=== PATIENT | female | born 1970 | race Caucasian/White ===

== ENCOUNTER 2020-03-27 06:35 | Day surgery (SDC) | payer BC ==
[2020-03-27] MEDS ORDERED: Midazolam 1 MG/ML 2 ML SDV ONE (06:49)
[2020-03-27] MEDS ORDERED: Ondansetron 4 MG/2 ML SDV ONE ×2 (06:49→08:13)
[2020-03-27] MEDS ORDERED: Propofol 200 MG/20 ML SDV ONE ×5 (06:49→09:28)
[2020-03-27] MEDS ORDERED: Lidocaine 1% 4 ML ONE (06:49)
[2020-03-27] MEDS ORDERED: fentaNYL 250 MCG/5 ML SDV ONE (06:49)
[2020-03-27] MEDS ORDERED: Rocuronium 50 MG/5 ML Vial ONE (06:49)
[2020-03-27] MEDS: Lactated Ringers 1,000 ML IV SCH ×2 (06:50→10:08)
[2020-03-27] MEDS ORDERED: ceFAZolin 1 GM Vial ONE (06:57)
[2020-03-27] MEDS ORDERED: Sodium Chloride 0.9% 10 ML Syringe FLUSH PRN (07:00)
[2020-03-27] MEDS ORDERED: Lidocaine 1%/Sod Bicarbonate in NS 8.4% 1 ML Syringe IDERM PRN (07:00)
[2020-03-27] MEDS ORDERED: Scopolamine 1.5 MG Transdermal Patch TOP SCH (07:20)
[2020-03-27] MEDS ORDERED: Sodium Chloride 0.9% 50 ML SDV ONE (07:20)
[2020-03-27] MEDS ORDERED: Bupivacaine 0.5% 30 ML SDV ONE (07:20)
[2020-03-27] MEDS ORDERED: Lidocaine 1% with EPINEPHrine 1:100,000 20 ML MDV ONE (07:20)
--- NOTE | 2020-03-27 07:22 | PCM.PREANE ---
Preanesthetic Assessment - Procedure Proposed Procedure: lap assisted vag hyst with bs - Anesthesia/Transfusion/Family Hx Type of Anesthesia Reaction: Excessive Nausea/Vomiting Family History of Anesthesia Reaction: No Transfusion History: No Prior Transfusion(s) - Review of Systems General: No Symptoms Pulmonary: No Symptoms Cardiovascular: Palpitations (on and off- pvc and said its harmless) Gastrointestinal: No Symptoms Neurological: No Symptoms Other: Reports: Anxiety - Physical Assessment NPO Status Date: 03/26/20 NPO Status Time: 21:00 Vital Signs: Last Vital Signs Temp 98.9 F 03/27/20 06:35 Pulse 84 03/27/20 06:35 Resp 18 03/27/20 06:35 BP 117/64 03/27/20 06:35 Pulse Ox 99 03/27/20 06:35 Height: 5 ft 8 in Weight: 72.575 kg ASA Class: 2 Mental Status: Alert & Oriented x3 Airway Class: Mallampati = 1 Dentition: Reports: Normal Dentition Thyro-Mental Finger Breadths: 3 Mouth Opening Finger Breadths: 3 ROM/Head Extension: Full Lungs: Clear to Auscultation, Normal Respiratory Effort Cardiovascular: Regular Rate, Regular Rhythm - Lab Values: Laboratory Last Values WBC 4.14 K/mm3 (3.98-10.04) 03/27/20 06:48 RBC 4.15 M/mm3 (3.98-5.22) 03/27/20 06:48 Hgb 12.1 gm/dl (11.2-15.7) 03/27/20 06:48 Hct 37.2 % (34.1-44.9) 03/27/20 06:48 MCV 89.6 fl (79.4-94.8) 03/27/20 06:48 MCH 29.2 pg (25.6-32.2) 03/27/20 06:48 MCHC 32.5 g/dl (32.2-35.5) 03/27/20 06:48 RDW Std Deviation 44.2 fL (36.4-46.3) 03/27/20 06:48 Plt Count 185 K/mm3 (182-369) 03/27/20 06:48 MPV 11.8 fl (9.4-12.3) 03/27/20 06:48 Neut % (Auto) 59.0 % (34.0-71.1) 03/27/20 06:48 Lymph % (Auto) 30.9 % (19.3-51.7) 03/27/20 06:48 [place] % (Auto) 7.7 % (4.7-12.5) 03/27/20 06:48 Eos % (Auto) 1.2 (0.7-5.8) 03/27/20 06:48 Baso % (Auto) 1.0 % (0.1-1.2) 03/27/20 06:48 Neut # (Auto) 2.44 K/mm3 (1.56-6.13) 03/27/20 06:48 Lymph # (Auto) 1.28 K/mm3 (1.18-3.74) 03/27/20 06:48 [place] # (Auto) 0.32 K/mm3 (0.24-0.36) 03/27/20 06:48 Eos # (Auto) 0.05 K/mm3 (0.04-0.36) 03/27/20 06:48 Baso # (Auto) 0.04 K/mm3 (0.01-0.08) 03/27/20 06:48 Urine Color Yellow (Yellow) 03/27/20 06:31 Urine Appearance Clear (Clear) 03/27/20 06:31 Urine pH 7.0 (5.0-8.0) 03/27/20 06:31 Ur Specific [place] 1.020 (1.005-1.030) 03/27/20 06:31 Urine Protein Negative (Negative) 03/27/20 06:31 Urine Glucose (UA) Negative (Negative) 03/27/20 06:31 Urine Ketones Negative (Negative) 03/27/20 06:31 Urine Occult Blood Negative (Negative) 03/27/20 06:31 Urine Nitrite Negative (Negative) 03/27/20 06:31 Urine Bilirubin Negative (Negative) 03/27/20 06:31 Urine Urobilinogen 0.2 (0.2-1.0) 03/27/20 06:31 Ur Leukocyte Esterase Negative (Negative) 03/27/20 06:31 Urine HCG, Qual Negative (NEGATIVE) 03/27/20 06:31 - Allergies Allergies/Adverse Reactions: Allergies Allergy/AdvReac Type Severity Reaction Status Date / Time No Known Allergies Allergy Verified 03/26/20 11:44 - Blood Blood Available: Yes - Acknowledgements Anesthesia Type Planned: General Anesthesia Pt an Appropriate Candidate for the Planned Anesthesia: Yes Alternatives and Risks of Anesthesia Discussed w Pt/Guardian: Yes Pt/Guardian Understands and Agrees with Anesthesia Plan: Yes PreAnesthesia Questionnaire Cardiovascular History: Reports: None Respiratory History: Reports: None Gastrointestinal History: Reports: GERD MUSKRAT TRAPPER History: Reports: Fibroids, Other OB/BYN History: ovarian cyst, irregular menses Musculoskeletal History: Reports: Arthritis (right knee) Psychiatric History: Reports: Anxiety Endocrine/Metabolic History: Reports: None Hematologic History: Reports: Anemia Oncologic (Cancer) History: Reports: None Dermatologic History: Reports: Other (See Below) Other Dermatologic History: cold sores - Past Surgical History Cardiovascular Surgical History: Reports: Varicose GI Surgical History: Reports: Hernia, Inguinal Female Surgical History: Reports: Section Musculoskeletal Surgical History: Reports: Arthroscopic Knee - SUBSTANCE USE Tobacco Use Status *Q: Never Tobacco User Tobacco Use Within Last Twelve Months: No Second Hand Smoke Exposure: No Days Per Week of Alcohol Use: 1 (rare) Recreational Drug Use History: No - HOME MEDS Home Medications: Home Meds Calcium Carbonate/Vitamin D3 [Calcium 500+D Tablet Chew] 1 tab PO DAILY 03/26/20 [History] Iron 1 tab PO DAILY 03/26/20 [History] Multivitamin 1 tab PO DAILY 03/26/20 [History] Norethindrone [Aygestin] 1 tab PO DAILY 03/26/20 [History] - CURRENT (IN HOUSE) MEDS Current Meds: Current Medications Lactated Ringer's (Ringers, Lactated) 1,000 mls @ 125 mls/hr IV ASDIRECTED DERRICK Stop: 03/27/20 23:00 Lidocaine/Sodium Bicarbonate (Buffered Lidocaine 1% In Ns 8.4%) 0.25 ml IDERM ONETIME PRN PRN Reason: Prior to IV Start Stop: 03/27/20 18:00 Sodium Chloride (Saline Flush) 10 ml FLUSH ASDIRECTED PRN PRN Reason: Keep Vein Open Stop: 03/27/20 18:00 Discontinued Medications Cefazolin Sodium (Ancef) Confirm Administered Dose 2 gm .ROUTE .STK-MED ONE Stop: 03/27/20 06:58 Fentanyl (Sublimaze) Confirm Administered Dose 250 mcg .ROUTE .STK-MED ONE Stop: 03/27/20 06:50 Lidocaine HCl (Xylocaine-Mpf 1%) Confirm Administered Dose 4 mls @ as directed .ROUTE .STK-MED ONE Stop: 03/27/20 06:50 Midazolam HCl (Versed 1 Mg/Ml) Confirm Administered Dose 2 mg .ROUTE .STK-MED ONE Stop: 03/27/20 06:50 Ondansetron HCl (Zofran) Confirm Administered Dose 4 mg .ROUTE .STK-MED ONE Stop: 03/27/20 06:50 Propofol (Diprivan 20 Ml) Confirm Administered Dose 200 mg .ROUTE .STK-MED ONE Stop: 03/27/20 06:50 Rocuronium [place] (Zemuron) Confirm Administered Dose 50 mg .ROUTE .STK-MED ONE Stop: 03/27/20 06:50
[2020-03-27] MEDS ORDERED: Ketorolac 30 MG/ML SDV ONE (07:58)
[2020-03-27] MEDS ORDERED: Dexamethasone 4 MG/ML 5 ML MDV ONE (07:58)
[2020-03-27] MEDS ORDERED: Lactated Ringers 1,000 ML ONE (08:01)
[2020-03-27] MEDS ORDERED: Ketamine 500 mg/10 ML MDV ONE (08:05)
[2020-03-27] MEDS ORDERED: HYDROmorphone 0.5 MG/0.5 ML Syringe IVPUSH PRN (08:10)
[2020-03-27] MEDS ORDERED: Ondansetron 4 MG/2 ML SDV IVPUSH PRN ×2 (08:10→09:59)
[2020-03-27] MEDS ORDERED: HYDROmorphone 0.5 MG/0.5 ML Syringe ONE (08:33)
--- NOTE | 2020-03-27 09:53 | PCM.POSTAN ---
POST ANESTHESIA ASSESSMENT - MENTAL STATUS Mental Status: Somnolent - VITAL SIGNS Vital Signs: Last Vital Signs Temp 98.9 F 03/27/20 06:35 Pulse 84 03/27/20 06:35 Resp 18 03/27/20 06:35 BP 117/64 03/27/20 06:35 Pulse Ox 99 03/27/20 06:35 0946 78 10 97.5 98 105/68 - RESPIRATORY Respiratory Status: Respiratory Rate WNL, Airway Patent, O2 Saturation Stable, Supplemental Oxygen - CARDIOVASCULAR CV Status: Pulse Rate WNL - GASTROINTESTINAL GI Status: No Symptoms - PAIN Pain Score: 0 (sleeping) - POST OP HYDRATION Hydration Status: Adequate & Stable
[2020-03-27] MEDS ORDERED: oxyCODONE 5 MG Tab PO PRN (09:59)
[2020-03-27] MEDS: fentaNYL 100 MCG/2 ML SDV IVPUSH PRN ×2 (10:04→10:26)
--- NOTE | 2020-03-27 10:06 | PCM.OPNOTE ---
- General Post-Op/Procedure Note Date of Surgery/Procedure: 03/27/20 Operative Procedure(s): Laparoscopic-assisted total vaginal hysterectomy with bilateral salpingectomy Findings: Anterior and posterior cul-de-sacs without any significant scarring. Right and left ovary were functional and normal in size. Left ovarian cyst previously seen on ultrasound and resolved. Fallopian tubes were unremarkable. Uterus was mildly enlarged. Is freely mobile and without other apparent pathology. Ankit endix is flaccid and not inflamed. Liver edge and gallbladder were without any evidence of inflammation. Pre Op Diagnosis: Menorrhagia with irregular cycles Post-Op Diagnosis: Same Anesthesia Technique: General ET Tube Other Anesthesia Type: Lidocaine 1/4% with [id number] cclocal, Marcaine0.5 %local Primary Surgeon: Kane Amezcua Secondary Surgeon: Robert Arellano Anesthesia Provider: Ca Epstein Reason Eyeglass Assembler Was Necessary: Retraction, assistance, patient safety, quality of care Pathology: Uterus/cervix/bilateral fallopian tubes in 1 specimen container Fluid Replacement, Intraop: 1,600 Output, Urine Amount: 250 EBL in mLs: 400 Drain/Tube Comments:: Indwelling bladder catheter during surgery only Condition: Good Free Text/Narrative:: Intake & Output 03/26/20 03/27/20 03/27/20 22:59 06:59 14:59 Output Total 250 Balance -250 Surgery duration: 83 minutes The patient was taken to the operating room placed in supine position on the operating table. She received 2 g of Ancef preoperatively for infection prophylaxis. She had signed consent previously. After adequate anesthesia patient was placed in a dorsal lithotomy position. It should be noted she had sequential compression stockings in place for DVT prophylaxis. Paz catheter was placed. This was done after adequate prepping and draping. The patient was placed in supine position and 3 laparoscopic port sites were developed. Marcaine 0.5% approximately 3-5 mL was injected at each site. Verres needle was placed and pneumoperitoneum was achieved with 3 L of CO2. Infraumbilical and 2 lateral port sites were developed. Under laparoscopic guidance the upper portion of the hysterectomy was performed. The right infundibulopelvic ligament was elevated and crossclamped using the [employer] computerized cautery device. The round ligament was taken down to the broad ligament. At this time attention was turned to the left side and the left infundibulopelvic ligament and the triple ligament were then taken down in a similar fashion. Broad ligament was taken down to the area of the uterine vasculature. Uterine vasculature was developed in the usual fashion using the cautery system. Both uterine arteries were identified and developed. Vaginal approach was then undertaken. The patient was placed in the dorsal lithotomy position and a weighted speculum was placed in the vagina. The cervix was injected with lidocaine quarter percent with epinephrine 20 mL total. A full circumference incision was made through the epithelium around the cervix. Posterior cul-de-sac was entered without problems. The left uterosacral ligament and then the right uterosacral were taken down using the Enseal vessel closure system. The cardinal ligament and what remained of the uterine vascular vessels and cervical branches of the vessels were managed with the Enseal vessel closure system on each side. Anterior cul-de-sac was then entered and the remaining portion of broad ligament on the right side and a small portion of broad ligam ent remaining on the left side were then developed in the usual fashion. Uterus was then removed. At this point the uterus was completely removed and sent as specimen. Some bleeding noted on the right pelvic sidewall. This was controlled with cautery and with a single suture of #1 Vicryl. The vaginal cuff was then run with a locked running suture of 0 Monocryl from the 2 o'clock position to the 10 o'clock position. The vagina was closed with a running locked suture of 0 Monocryl. Hemostasis was confirmed this time and no bleeding was noted. Laparoscopy was then performed to ensure hemostasis. Pneumoperitoneum was reestablished and the laparoscope was placed. 1 small peritoneal bleeder was noted on the right pelvic sidewall and this was cauterized. After this the pelvis was found to be hemostatically intact. There was no evidence of any bowel adhesion to the vaginal cuff area noted. The sleeves were removed under direct visualization and the upper sleeve was removed after reversal of the pneumoperitoneum. Each of these sites were closed with a single interrupted suture of 3-0 Monocryl. They were further approximated with Dermabond skin glue. At this point the patient was awakened from general endotracheal anesthesia. The Paz catheter had been removed by this time. She is discharged from the operating room in good condition.
--- NOTE | 2020-03-27 11:32 | PCM48HPAN ---
Post Anesthesia Note - EVALUATION WITHIN 48HRS OF ANESTHETIC Vital Signs in Normal Range: Yes Patient Participated in Evaluation: Yes Respiratory Function Stable: Yes Airway Patent: Yes Cardiovascular Function Stable: Yes Hydration Status Stable: Yes (patient states very little nausea if any) Pain Control Satisfactory: Yes Nausea and Vomiting Control Satisfactory: Yes Mental Status Recovered: Yes (Minimal pain- mostly a pressure feeling- ) Vital Signs: Last Vital Signs Temp 97.1 F 03/27/20 11:00 Pulse 55 L 03/27/20 11:00 Resp 16 03/27/20 11:00 BP 104/85 03/27/20 11:00 Pulse Ox 98 03/27/20 11:00
[2020-03-27] MEDS ORDERED: Ibuprofen 600 MG Tab PO PRN (14:00)
== END 2020-03-27 13:15 | disposition home or self-care (01) ==
LOC: JD.SDS 06:35
PROVIDERS: ATTEND Obstetrics & Gynecology
DX: D25.9 Leiomyoma of uterus, unspecified (principal); N83.8 Other noninflammatory disorders of ovary, fallopian tube and broad ligament; N80.0 Endometriosis of uterus; F41.9 Anxiety disorder, unspecified; K21.9 Gastro-esophageal reflux disease without esophagitis; N83.209 Unspecified ovarian cyst, unspecified side; Z79.899 Other long term (current) drug therapy; Z98.890 Other specified postprocedural states
CPT/HCPCS: 36415; 58552; 80053; 81003; 81025; 85025; 86850; 86900; 86901; A9270; J0690; J1100; J1170; J1885; J2001; J2250; J2405; J2704; J3010; J3490; J7120

== ENCOUNTER 2023-04-20 07:00 | Day surgery (SDC) | payer BC ==
[~2023-04-20 07:00] MED LIST: Acetaminophen 325 MG Tab PO SCH; EPINEPHrine 1 MG/ML SDV ONE; Lactated Ringers 1,000 ML IV SCH; Midazolam 1 MG/ML 2 ML SDV ONE; Morphine 8 MG, EPINEPHrine 0.3 MG, Cefuroxime 750 MG, Ketorolac 30 MG, Sodium Chloride ... PRN; Pregabalin 25 MG Cap PO SCH; Propofol 200 MG/20 ML SDV ONE; Ropivacaine 0.5% 5 MG/ML 30 ML SDV ONE; Sodium Chloride 0.9% 10 ML Syringe FLUSH PRN; Tranexamic Acid 1,000 MG/10 ML Vial ONE; Vancomycin 1 GM SDV ONE; ceFAZolin 2 GM Vial ONE; dexmedeTOMIDine HCl 200 MCG/2 ML SDV ONE; fentaNYL 100 MCG/2 ML SDV ONE; oxyCODONE ER 10 MG TAB.ER PO SCH
[2023-04-20] MEDS ORDERED: Ondansetron 4 MG/2 ML SDV IVPUSH PRN (07:31)
[2023-04-20] MEDS ORDERED: HYDROmorphone 0.5 MG/0.5 ML Syringe IVPUSH PRN (07:31)
[2023-04-20] MEDS ORDERED: fentaNYL 100 MCG/2 ML SDV IVPUSH PRN (07:31)
[2023-04-20] MEDS ORDERED: Ondansetron 4 MG/2 ML SDV ONE (08:42)
[2023-04-20] MEDS ORDERED: Ketorolac 30 MG/ML SDV ONE (08:42)
[2023-04-20] MEDS ORDERED: Dexamethasone 4 MG/ML 5 ML MDV ONE (08:42)
[2023-04-20] MEDS ORDERED: Sodium Chloride 0.9% 10 ML Syringe FLUSH SCH (09:00)
[2023-04-20] MEDS ORDERED: Lactated Ringers 1,000 ML ONE (09:37)
[2023-04-20] MEDS ORDERED: oxyCODONE 5 MG Tab PO PRN (10:35)
[2023-04-20] MEDS ORDERED: Cyclobenzaprine 10 MG Tab PO PRN (10:37)
== END 2023-04-20 14:15 | disposition home or self-care (01) ==
LOC: JD.SDS 07:00
PROVIDERS: ATTEND Orthopaedic Surgery
DX: M17.11 Unilateral primary osteoarthritis, right knee (principal); F41.9 Anxiety disorder, unspecified; K21.9 Gastro-esophageal reflux disease without esophagitis; Z79.899 Other long term (current) drug therapy
CPT/HCPCS: 73560-26-RT; 73560-RT; 97116-GP; 97161-GP; A9270-GY; C1713; C1776; J0171; J0690; J0697; J1100; J1170; J1885; J2250; J2270; J2405; J2704; J2795; J3010; J3370; J3490; J7030; J7120